=== PATIENT | male | born 1990 | race Caucasian/White ===

== ENCOUNTER 2025-02-12 17:27 | Observation (INO) ==
[2025-02-12] MEDS ORDERED: IOPAMIDOL 100 ML BOTTLE IV ONE (17:28)
[2025-02-12] MEDS: 0.9 % SODIUM CHLORIDE 1,000 ML IV ONE (18:21)
[2025-02-12] MEDS: KETOROLAC 15 MG/ML VIAL IV ONE ×2 (18:21→18:59)
[2025-02-12] MEDS: ONDANSETRON 4 MG/2 ML VIAL IV ONE (18:21)
[2025-02-12 18:31] LABS: Basophils # (Auto) 0.05 K/mcL (0.00-0.30); Basophils % (Auto) 0.4 % (0.0-2.0); Eosinophils # (Auto) 0.25 K/mcL (0.00-0.70); Eosinophils % (Auto) 1.9 % (0.0-7.0); Hematocrit 37.4 % (40.1-51.0); Hemoglobin 12.4 g/dL (13.7-17.5); Lymphocytes # (Auto) 1.42 K/mcL (1.50-4.80); Lymphocytes % (Auto) 10.9 % (15.5-49.0); Mean Corpuscular HGB Conc 33.2 g/dL (31.0-36.0); Monocytes # (Auto) 0.72 K/mcL (0.10-0.90); Monocytes % (Auto) 5.5 % (1.0-12.0); Neutrophils % (Auto) 81.0 % (38.0-78.0); Platelet Count 151 K/mcL (140-440); RBC 4.15 M/mcL (4.63-6.08); WBC 13.0 K/mcL (4.5-11.0)
[2025-02-12] MEDS: PIPERACILLIN SODIUM/TAZOBACTAM 3.375 GM in DEXTROSE 5% IN WATER 50 ML IV ONE (19:00)
[2025-02-12] MEDS ORDERED: ONDANSETRON 4 MG/2 ML VIAL IV PRN (19:04)
[2025-02-12 19:15] LABS: ALT/SGPT 23 U/L (<40); AST/SGOT 40 U/L (<40); Albumin 4.5 gm/dL (3.2-5.2); Albumin/Globulin Ratio 2.0 (1.0-2.3); Alkaline Phosphatase 37 U/L (39-117); Anion Gap 9.0 (8.0-16.0); Bilirubin,Total 0.3 mg/dL (0.1-1.0); Blood Urea Nitrogen 10 mg/dL (6-20); Calcium 9.4 mg/dL (8.6-10.4); Carbon Dioxide 28 mmol/L (22-30); Chloride 103 mmol/L (96-108); Globulin 2.2 gm/dL (2.2-3.7); Glucose 80 mg/dL (70-105); Potassium 4.3 mmol/L (3.3-5.1); Sodium 140 mmol/L (133-145)
[2025-02-12 19:29] LABS: INR 0.9 (0.9-1.1); Prothrombin Time 13.0 sec (11.9-14.5)
[2025-02-12] MEDS: PIPERACILLIN SODIUM/TAZOBACTAM 3.375 GM in DEXTROSE 5% IN WATER 100 ML IV SCH (19:40)
[2025-02-12] MEDS: HYDROmorphone 0.5 MG/0.5 ML SYRINGE IV PRN (20:16)
[2025-02-12] MEDS: 0.9 % SODIUM CHLORIDE 1,000 ML IV SCH (21:26)
[2025-02-13 00:24] LABS: Bilirubin,Urine Negative (Negative); Color,Urine STRAW; Glucose,Urine (UA) Negative (Negative); Ketones,Urine Negative (Negative); Leukocyte Esterase,Urine Negative /uL (Negative); PH,Urine 7.0 (5.0-9.0); Protein,Urine Negative (Negative); Specific Gravity,Urine 1.026 (1.000-1.035); Urobilinogen,Urine Negative
[2025-02-13 06:33] LABS: Basophils # (Auto) 0.03 K/mcL (0.00-0.30); Basophils % (Auto) 0.3 % (0.0-2.0); Eosinophils # (Auto) 0.09 K/mcL (0.00-0.70); Eosinophils % (Auto) 0.9 % (0.0-7.0); Hematocrit 38.1 % (40.1-51.0); Hemoglobin 12.7 g/dL (13.7-17.5); Lymphocytes # (Auto) 1.05 K/mcL (1.50-4.80); Lymphocytes % (Auto) 10.7 % (15.5-49.0); Mean Corpuscular HGB Conc 33.3 g/dL (31.0-36.0); Monocytes # (Auto) 0.53 K/mcL (0.10-0.90); Monocytes % (Auto) 5.4 % (1.0-12.0); Neutrophils % (Auto) 82.4 % (38.0-78.0); Platelet Count 151 K/mcL (140-440); RBC 4.24 M/mcL (4.63-6.08); WBC 9.9 K/mcL (4.5-11.0)
[2025-02-13 06:51] LABS: ALT/SGPT 25 U/L (<40); AST/SGOT 38 U/L (<40); Albumin 4.5 gm/dL (3.2-5.2); Albumin/Globulin Ratio 2.1 (1.0-2.3); Alkaline Phosphatase 38 U/L (39-117); Anion Gap 10.0 (8.0-16.0); Bilirubin,Direct 0.4 mg/dL (<0.3); Bilirubin,Total 1.1 mg/dL (0.1-1.0); Blood Urea Nitrogen 10 mg/dL (6-20); Calcium 9.2 mg/dL (8.6-10.4); Carbon Dioxide 25 mmol/L (22-30); Chloride 103 mmol/L (96-108); Globulin 2.1 gm/dL (2.2-3.7); Glucose 90 mg/dL (70-105); Phosphorous 3.0 mg/dL (2.5-4.5); Potassium 4.1 mmol/L (3.3-5.1); Sodium 138 mmol/L (133-145); Triglycerides 36 mg/dL (<150); Uric Acid 3.2 mg/dL (2.5-8.0)
[2025-02-13] MEDS ORDERED: DEXAMETHASONE 10 MG/ML VIAL ONE (11:53)
[2025-02-13] MEDS ORDERED: ROCURONIUM 10 MG/ML ML IV ONE (11:53)
[2025-02-13] MEDS ORDERED: LIDOCAINE 2% PF 5 ML VIAL ONE (11:53)
[2025-02-13] MEDS ORDERED: ONDANSETRON 4 MG/2 ML VIAL ONE (11:53)
[2025-02-13] MEDS ORDERED: PROPOFOL 200 MG/20 ML VIAL IV ONE (11:53)
[2025-02-13] MEDS ORDERED: FAMOTIDINE/PF 20 MG/2 ML VIAL IV ONE (11:53)
[2025-02-13] MEDS ORDERED: fentaNYL 100 MCG/2 ML VIAL ONE (11:54)
[2025-02-13] MEDS ORDERED: MAGNESIUM SULFATE 2 GM/50 ML BAG IV ONE (11:59)
[2025-02-13] MEDS ORDERED: SUGAMMADEX SODIUM 200 MG/2 ML VIAL IV ONE (12:37)
[2025-02-13] MEDS ORDERED: hydrALAZINE 20 MG/ML VIAL ONE (12:44)
[2025-02-13] MEDS ORDERED: GLYCOPYRROLATE 0.2 MG/ML VIAL IV ONE (12:44)
[2025-02-13] MEDS ORDERED: ONDANSETRON 4 MG/2 ML VIAL IV PRN (13:04)
[2025-02-13] MEDS ORDERED: IPRATROPIUM/ALBUTEROL 3 ML AMPUL.NEB NEB PRN (13:04)
[2025-02-13] MEDS: ACETAMINOPHEN 1,000 MG/100 ML BAG IV ONE (13:20)
[2025-02-13] MEDS: HYDROmorphone 0.5 MG/0.5 ML SYRINGE IV PRN (14:02)
[2025-02-13] MEDS: ACETAMINOPHEN 1,000 MG/100 ML BAG IV PRN (23:15)
[2025-02-14 06:30] LABS: Basophils # (Auto) 0.01 K/mcL (0.00-0.30); Basophils % (Auto) 0.1 % (0.0-2.0); Eosinophils # (Auto) 0 K/mcL (0.00-0.70); Eosinophils % (Auto) 0 % (0.0-7.0); Hematocrit 38.3 % (40.1-51.0); Hemoglobin 12.9 g/dL (13.7-17.5); Lymphocytes # (Auto) 0.91 K/mcL (1.50-4.80); Lymphocytes % (Auto) 8.9 % (15.5-49.0); Mean Corpuscular HGB Conc 33.7 g/dL (31.0-36.0); Monocytes # (Auto) 0.75 K/mcL (0.10-0.90); Monocytes % (Auto) 7.3 % (1.0-12.0); Neutrophils % (Auto) 83.5 % (38.0-78.0); Platelet Count 145 K/mcL (140-440); RBC 4.28 M/mcL (4.63-6.08); WBC 10.2 K/mcL (4.5-11.0)
[2025-02-14 06:56] LABS: ALT/SGPT 24 U/L (<40); AST/SGOT 37 U/L (<40); Albumin 4.4 gm/dL (3.2-5.2); Albumin/Globulin Ratio 1.8 (1.0-2.3); Alkaline Phosphatase 39 U/L (39-117); Anion Gap 12.0 (8.0-16.0); Bilirubin,Direct 0.3 mg/dL (<0.3); Bilirubin,Total 0.7 mg/dL (0.1-1.0); Blood Urea Nitrogen 11 mg/dL (6-20); Calcium 9.6 mg/dL (8.6-10.4); Carbon Dioxide 23 mmol/L (22-30); Chloride 102 mmol/L (96-108); Globulin 2.5 gm/dL (2.2-3.7); Glucose 116 mg/dL (70-105); Phosphorous 3.7 mg/dL (2.5-4.5); Potassium 4.5 mmol/L (3.3-5.1); Sodium 137 mmol/L (133-145); Triglycerides 39 mg/dL (<150); Uric Acid 2.5 mg/dL (2.5-8.0)
[2025-02-14 08:07] VITALS: TEMP 97.9; O2SAT 100
== END 2025-02-14 10:00 | disposition home or self-care (01) ==
LOC: MEDSUR 17:27 → ED 17:27 → MEDSUR 19:46
PROVIDERS: ADMIT Family Medicine Adult Medicine; ATTEND Family Medicine Adult Medicine
PROC: LAPAPPY (ICD-10-PCS; 2025-02-13 12:05)